=== PATIENT | male | born 1975 | race Caucasian/White ===

== ENCOUNTER 2017-10-08 13:45 | Emergency (ER) | payer BC, OTHER ==
[2017-10-08 13:57] VITALS: BP 116/71; PULSE 99; TEMP 98.6; BMI 24.4
[2017-10-08] MEDS ORDERED: predniSONE 20 MG TABLET (UD) ONE (15:37)
[2017-10-08] MEDS ORDERED: ALBUTEROL SO4 2.5/IPRATROPIUM 0.5 INH SOL 3 ML VIAL.NEB. NEB ONE ×2 (15:38→15:40)
--- NOTE | 2017-10-08 15:38 | PDOC ---
History of Present Illness - General Chief Complaint: Cold Symptoms Stated Complaint: congestion Time Seen by Provider: 10/08/17 15:26 History Source: Patient Exam Limitations: No Limitations - History of Present Illness Initial Comments: 10/08/17 15:38 Agent is here with complaints of persistent malaise, shortness of breath, states has been else for approximately 10 days, but states cough has not persisted. Does not feel feverish but has not felt well. States mother is also ill at home and was checked and negative for influenza 5 days ago. Patient was concerned because his exercise tolerance is low and states was walking up a hill and felt that he was unable to catch his breath. Denies chest pain palpitations, denies dizziness headache. Timing/Duration: reports: intermittent Severity: reports: moderate Past History - Travel Traveled outside of the country in the last 30 days: No Close contact w/someone who was outside of country & ill: No - Past Medical History Allergies/Adverse Reactions: Allergies Allergy/AdvReac Type Severity Reaction Status Date / Time No Known Allergies Allergy Verified 10/08/17 13:57 Home Medications: Ambulatory Orders Albuterol Sulfate Inhaler - [Ventolin HFA Inhaler -] 1 - 2 inh PO Q4H #1 inhaler 10/08/17 Prednisone [Deltasone -] 20 mg PO BID #8 tablet 10/08/17 COPD: No Disorders: Yes (KIDNEY STONES) - Surgical History Orthopedic Surgery: Yes (SHOULDER SX '11 LEFT) - Immunization History Immunization Up to Date: Yes - Suicide/Smoking/Psychosocial Hx Smoking Status: Yes Smoking History: Never smoked Have you smoked in the past 12 months: No Number of Cigarettes Smoked Daily: 5 If you are a former smoker, when did you quit?: 2YRS AGO Information on smoking cessation initiated: No Hx Alcohol Use: No Drug/Substance Use Hx: No Substance Use Type: None Respiratory Specific PMHX - Complaint Specific PMHX Bronchitis: No Pneumonia: No Review of Systems - Review of Systems Able to Perform ROS?: Yes Is the patient limited Bengali proficient: Yes Constitutional: Yes: Symptoms Reported, See HPI, Malaise. No: Fever HEENTM: Yes: See HPI, Difficulty Swallowing. No: Symptoms Reported, Nose Congestion, Throat Pain, Throat Swelling Respiratory: Yes: Symptoms reported, See HPI, Cough, Shortness of Breath, SOB with Exertion, Wheezing ABD/GI: No: Symptoms Reported : No: Symptoms Reported Musculoskeletal: No: Symptoms Reported Integumentary: Yes: Symptoms Reported Neurological: Yes: See HPI. No: Symptoms reported, Headache, Numbness All Other Systems: Reviewed and Negative *Physical Exam - Vital Signs Last Vital Signs Temp Pulse Resp BP Pulse Ox 98.6 F 99 H 19 116/71 99 10/08/17 13:54 10/08/17 13:54 10/08/17 13:54 10/08/17 13:54 10/08/17 13:54 - Physical Exam General Appearance: Yes: Nourished, Appropriately Dressed. No: Apparent Distress, Mild Distress HEENT: positive: SONIYA, Normal ENT Inspection, TMs Normal, Pharynx Normal Neck: positive: Supple. negative: Lymphadenopathy (R), Lymphadenopathy (L) Respiratory/Chest: positive: Lungs Clear (but tight intrauterine expiratory effort. No true wheezing noted). negative: Chest Tender, Accessory Muscle Use, Wheezing Gastrointestinal/Abdominal: positive: Normal Bowel Sounds, Soft. negative: Tender Musculoskeletal: positive: Normal Inspection Extremity: positive: Normal Capillary Refill, Normal Range of Motion Integumentary: positive: Normal Color, Dry, Warm, Pale Neurologic: positive: hotel director II-XII NML intact, Fully Oriented, Alert, Normal Mood/ Affect, Normal Response, Motor Strength 5/5 Progress Note - Progress Note Progress Note: upper resp Infection, mild. We'll treat with albuterol and short course of prednisone *DC/Admit/Observation/Transfer Diagnosis at time of Disposition: Upper respiratory infection, viral - Discharge Dispostion Disposition: HOME Condition at time of disposition: Stable Admit: No - Prescriptions Prescriptions: Albuterol Sulfate Inhaler - [Ventolin HFA Inhaler -] 1 - 2 inh PO Q4H #1 inhaler Prednisone [Deltasone -] 20 mg PO BID #8 tablet - Referrals - Patient Instructions Printed Discharge Instructions: DI for Viral Upper Respiratory Infection -- Adult Additional Instructions: Rest, drink lots of fluids: Teas, water, soups, Pedialyte Saltwater gargles Steamy showers/seem to face break up mucus Avoid contact with others until fevers and cough resolved Lots of handwashing and good hygiene Continue [id number] medications for symptomatic relief Tylenol or Motrin for fever and pain Continue albuterol nebulizers every 4-6 hours for the next 2 days then as needed for continued cough Prednisone as directed until completed Followup with private physician in one to 2 days Return to emergency department / pediatric hospital for worsened symptoms, fevers, dehydration - Post Discharge Activity Forms/Work/School Notes: Back to School
[2017-10-08] MEDS ORDERED: predniSONE 20 MG TABLET (UD) PO ONE (15:40)
== END 2017-10-08 16:59 | disposition home or self-care (01) ==
LOC: JERFT 13:45
DX: J06.9 Acute upper respiratory infection, unspecified (principal); B97.89 Other viral agents as the cause of diseases classified elsewhere
CPT/HCPCS: 71046-TC-FY; 99281-25

== ENCOUNTER 2018-07-06 07:29 | Day surgery (SDC) | payer OTHER ==
[2018-07-03 12:32] VITALS: BMI 25.0
[2018-07-06] MEDS ORDERED: PROPOFOL 20 ML ONE (10:48)
[2018-07-06] MEDS ORDERED: MIDAZOLAM HCL 2 MG/2 ML SINGLE DOSE VIAL ONE (10:48)
[2018-07-06] MEDS ORDERED: LIDOCAINE HCL/PF 2% SDV 5ML VIAL ONE (10:54)
[2018-07-06] MEDS ORDERED: KETOROLAC TROMETHAMINE 30 MG/1 ML VIAL ONE (10:54)
--- NOTE | 2018-07-06 12:02 | OP ---
Operative Note - Note: Operative Date: 07/06/18 Pre-Operative Diagnosis: Right renal stone Operation: Right ESWL Findings: 6 mm Right kidney lower pole stone Post-Operative Diagnosis: Same as Pre-op Surgeon: 2,Program Planners Anesthesia: Fractional Estimated Blood Loss (mls): 0
[2018-07-06 12:40] VITALS: BP 125/75; PULSE 71
--- NOTE | 2018-07-06 22:51 | OP ---
DATE OF OPERATION: 07/06/2018 PREOPERATIVE DIAGNOSIS: Right renal stone. POSTOPERATIVE DIAGNOSIS: Right renal stone. PROCEDURE: Right extracorporeal shockwave lithotripsy. ATTENDING: Han Chau M.D. ANESTHESIA: Fractional. DESCRIPTION OF PROCEDURE: Patient was brought in the operating room, placed in a supine position on the operating room table. Ultrasonography and fluoroscopy were performed. A 6-mm right lower pole stone was identified. Anesthesia and preoperative antibiotics were then administered. Shockwave lithotripsy was then started. 2500 impulses at 17 joules of power were administered to the stone with excellent fragmentation under real time sonography and fluoroscopy. No complications were noted. DISPOSITION: To recovery room. HAN MI M.D. [id number]
== END 2018-07-06 12:42 | disposition home or self-care (01) ==
LOC: JASU-SURG 07:29
PROVIDERS: ATTEND Urology
PROC: 0TF3XZZ Fragmentation in Right Kidney Pelvis, External Approach (ICD-10-PCS; principal; 2018-07-06 09:30)
DX: N20.0 Calculus of kidney (principal)

== ENCOUNTER 2018-07-20 10:43 | Day surgery (SDC) | payer OTHER ==
[2018-07-16 17:52] VITALS: BMI 25.0
[2018-07-20] MEDS ORDERED: PROPOFOL 20 ML ONE (12:14)
[2018-07-20] MEDS ORDERED: KETOROLAC TROMETHAMINE 30 MG/1 ML VIAL ONE (12:14)
[2018-07-20] MEDS ORDERED: MIDAZOLAM HCL 2 MG/2 ML SINGLE DOSE VIAL ONE (12:14)
--- NOTE | 2018-07-20 12:59 | OP ---
Operative Note - Note: Operative Date: 07/20/18 Pre-Operative Diagnosis: Left renal stone Operation: Left ESWL Findings: x2 5mm Left upper pole renal stone Post-Operative Diagnosis: Same as Pre-op Surgeon: Brant Chau Anesthesia: Fractional Estimated Blood Loss (mls): 0 Drains, Volume Out (mls): 0
[2018-07-20 14:00] VITALS: PULSE 66; TEMP 98
[2018-07-20 14:05] VITALS: BP 113/70
--- NOTE | 2018-07-20 22:15 | OP ---
DATE OF OPERATION: 07/20/2018 PREOPERATIVE DIAGNOSIS: Left renal stone. POSTOPERATIVE DIAGNOSIS: Left renal stone. PROCEDURE: Left extracorporeal shock wave lithotripsy. ATTENDING: Han Mi MD ANESTHESIA: Fractional. DESCRIPTION OF OPERATION: The patient was brought in the operating room and placed in supine position on the operating room table. Ultrasonography and fluoroscopy were performed. Two stones, each measuring 5 mm, were noted in the left upper pole of the kidney. Anesthesia and preoperative antibiotics were then administered to the patient. Shock wave lithotripsy was then started; 1500 impulses at 17 joules of power were administered to each stone. Excellent fragmentation was noted. There were no complications noted. HAN MI M.D. [id number]
== END 2018-07-20 14:05 | disposition home or self-care (01) ==
LOC: JASU-SURG 10:43
PROVIDERS: ATTEND Urology
PROC: 0TF4XZZ Fragmentation in Left Kidney Pelvis, External Approach (ICD-10-PCS; principal; 2018-07-20 12:30)
DX: N20.0 Calculus of kidney (principal)